=== PATIENT | male | born 1995 | race Caucasian/White ===

== ENCOUNTER 2023-07-13 12:08 | Emergency (ER) | payer OTHER ==
[2023-07-13 12:25] VITALS: BP 127/80; O2SAT 99
--- NOTE | 2023-07-13 12:51 | ED Physician Documentation ---
PD HPI HEENT - Stated complaint Stated Complaint: LT EAR PX/ FACE SWELLING - Chief complaint Chief Complaint: Heent - History obtained from History obtained from: Patient - Additional information Additional information: Patient comes to the emergency department chief complaint of left ear pain that started last night. He states he has had ear infections before and this feels similar. He denies recent allergies or upper respiratory symptoms. He has had a slight feeling of fullness or congestion on the left side but no nasal clogging. He denies recent diving or flying. No change in his hearing. No drainage. No fevers or chills. He states he is otherwise fairly healthy. PD PAST MEDICAL HISTORY - Past Medical History Past Medical History: No Cardiovascular: None Respiratory: None Neuro: None Endocrine/Autoimmune: None GI: None : None HEENT: None Psych: None Musculoskeletal: None Derm: None - Past Surgical History Past Surgical History: No - Present Medications Home Medications: Ambulatory Orders Medication Instructions Recorded Confirmed No Known Home Medications 07/13/23 07/13/23 - Allergies Allergies/Adverse Reactions: Allergies Allergy/AdvReac Type Severity Reaction Status Date / Time No Known Drug Allergies Allergy Verified 07/13/23 12:14 - Social History Does the pt smoke?: No Smoking Status: Never smoker Does the pt drink ETOH?: Yes Does the pt have substance abuse?: No - Immunizations Immunizations are current?: Yes - POLST Patient has POLST: No PD ED PE NORMAL - Vitals Vital signs reviewed: Yes - General General: Alert and oriented X 3, No acute distress, Well developed/nourished - HEENT HEENT: Atraumatic, PERRL, EOMI, Ears normal (No erythema, dullness, bulging, or external auditory canal findings on the left. No cerumen. Right ear normal also.), Moist mucous membranes, Other (No periauricular adenopathy.) - Neck Neck: Supple, no meningeal sign, No adenopathy - Respiratory Respiratory: No respiratory distress - Derm Derm: Normal color, Warm and dry, No rash - Extremities Extremities: No deformity - Neuro Neuro: Other (Grossly intact, alert.) - Psych Psych: Normal mood, Normal affect Results - Vitals Vitals: Vital Signs - 24 hr 07/13/23 12:14 Temperature 36.5 C Heart Rate 79 Respiratory 16 Rate Blood Pressure 127/80 O2 Saturation 99 Oxygen O2 Source Room air PD Medical Decision Making - ED course Complexity details: considered differential, d/w patient ED course: I discussed with the patient that I do not find any evidence of an ear infection. I suspect serous otitis media and eustachian tube dysfunction. We have discussed the use of Sudafed and ibuprofen for symptomatic relief. We have discussed the usual indications for return. Departure - Departure Disposition: 01 Home, Self Care Clinical Impression: Acute otalgia Qualifiers: Laterality: left Qualified Code(s): H92.02 - Otalgia, left ear Condition: Stable Instructions: ED Otitis Media Serous Adult Comments: Your ear exam actually looks really good today. Is not clear what caused your ear to start hurting last night but most likely, your eustachian tube is clogged and not allowing air and fluid pressure to equalize. When the pressure builds up behind the eardrum, this can cause pain. Antibiotics will not help with this condition. You may get Sudafed and ibuprofen [id number] and take these to help with the congestion and inflammation in the eustachian tube. If you feel like your pain is getting significantly worse or developing a fever, please return to the emergency department.
== END 2023-07-13 12:58 | disposition home or self-care (01) ==
LOC: ED 12:08
DX: H92.02 Otalgia, left ear (principal)
CPT/HCPCS: 99282; 99283